=== PATIENT | male | born 1995 | race American Indian/Alaskan Native ===

== ENCOUNTER 2019-02-06 09:30 | Emergency (ER) | payer SELFPAY ==
[2019-02-06 09:39] VITALS: BP 109/63
--- NOTE | 2019-02-06 10:02 | Emergency Department Report ---
HPI - General Chief Complaint: Urogenital-Male Time Seen by Provider: 02/06/19 09:44 - HPI HPI: 23-year-old -[place] male presents to the emergency department with the concern for STDs. Patient has been having some irritation to the tip of his pen is, some occasional mild discharge and has noticed a few bumps on the end of the shaft of his penis. He does admit to some unprotected sexual intercourse last did this about one month ago. He has a previous history of having gonorrhea one time. He says that he was not diagnosed with anything specific when he went to the urgent care 1.5 weeks ago but was treated allegedly for gonorrhea, chlamydia and trichomoniasis. He said he received a shot of something and a few large white pills. However he says that the symptoms have not improved. No past medical history. No recent travel. No fever, nausea, vomiting, testicular pain. ED Past Medical Hx - Past Medical History Previous Medical History?: No - Surgical History Past Surgical History?: No - Social History Smoking Status: Never Smoker Substance Use Type: None ED Review of Systems ROS: Stated complaint: STD CHECK Other details as noted in HPI Comment: All other systems reviewed and negative Constitutional: denies: chills, fever Genitourinary: dysuria, discharge. denies: testicular pain Skin: lesions. denies: pruritus Physical Exam - Physical Exam Vital Signs: Vital Signs 02/06/19 09:37 Temperature 98.5 F Pulse Rate 79 Respiratory 16 Rate Blood Pressure 109/63 O2 Sat by Pulse 98 Oximetry Physical Exam: GENERAL: The patient is well-developed well-nourished. HENT: Normocephalic. Atraumatic. Patient has moist mucous membranes. EYES: Extraocular motions are intact. NECK: Supple. Trachea is midline. ABDOMEN: There is no abdominal distention. SKIN: Skin is warm and dry. NEURO: The patient is awake, alert, and oriented. The patient is cooperative. The patient has no focal neurologic deficits. Normal speech. MUSCULOSKELETAL: There is no tenderness or deformity. There is no evidence of acute injury. : Circumcised male. No tenderness to palpation of the penis or scrotum/testicles. There is a single small papule to the distal penile shaft. ED Course Vital Signs 02/06/19 09:37 Temperature 98.5 F Pulse Rate 79 Respiratory 16 Rate Blood Pressure 109/63 O2 Sat by Pulse 98 Oximetry ED Medical Decision Making - Medical Decision Making Patient presents with the complaint of exposure to STDs and possible failed outpatient treatment. However he does not have any significant symptoms. A single small papules seen to the distal penile shaft. It does not appear consistent with syphilis. He has no penile discharge. Urinalysis was negative and I would expect to see some white blood cells with urethritis. However, given his exposure to the STDs and his complaints of some dysuria, the patient will be empirically treated with Rocephin and azithromycin. Given a referral for the local health department and [facility]. Safe sex talk given. - Differential Diagnosis urethritis, UTI, gonorrhea, chlamydia Critical Care Time: No Critical care attestation.: If time is entered above; I have spent that time in minutes in the direct care of this critically ill patient, excluding procedure time. ED Disposition Clinical Impression: Dysuria, Concern about STD in male without diagnosis Disposition: DC-01 TO HOME OR SELFCARE Is pt being admited?: No Condition: Stable Instructions: Safe Sex (ED) Additional Instructions: I have given a referral for the [facility] to follow-up for primary care needs. I have also given youb a referral for the local [facility]. Please practice safe sex. Especially, do not initiate any type of sexual contact for at least one week after receiving the treatment/medication here today. Return to the emergency Department with any worsening of your symptoms or any acute distress. Referrals: [facility] [Outside] - 3-5 Days [facility] [Outside] - 3-5 Days
[2019-02-06 10:31] LABS: Bilirubin,Urine NEG (Negative); Blood,Urine NEG (Negative); Color,Urine Straw (Yellow); Protein,Urine <15 mg/dL mg/dL (Negative); Urobilinogen,Urine < 2.0 mg/dL (<2.0); WBC,Urine < 1.0 /HPF (0.0-6.0)
[2019-02-06] MEDS ORDERED: ZITHROMAX PO ONE (10:37)
[2019-02-06] MEDS ORDERED: XYLOCAINE 1% MPF 5 mL INFILTRATI ONE (10:37)
[2019-02-06] MEDS ORDERED: ROCEPHIN IM ONE (10:37)
== END 2019-02-06 11:09 | disposition home or self-care (01) ==
LOC: ED 09:30
DX: R30.0 Dysuria (principal); R36.9 Urethral discharge, unspecified; Z71.1 Person with feared health complaint in whom no diagnosis is made
CPT/HCPCS: 81001; 87591; J0696; 96372

== ENCOUNTER 2020-02-02 17:47 | Inpatient (IN) | payer OTHER ==
[2020-02-02 18:39] LABS: Hematocrit 44.2 % (35.5-45.6); Mean Corpuscular HGB Conc 32 % (32-34); Mean Corpuscular Volume 85 fl (84-94); Platelet Count 295 K/mm3 (140-440); Red Blood Count 5.21 M/mm3 (3.65-5.03); Red Cell Distribution Width 16.4 % (13.2-15.2)
[2020-02-02 18:58] LABS: Alanine Aminotransferase 15 units/L (7-56); Albumin 4.2 g/dL (3.9-5); BUN/Creatinine Ratio 8; Blood Urea Nitrogen 7 mg/dL (9-20); Calcium 9.7 mg/dL (8.4-10.2); Hemolysis Index 11
[2020-02-02 21:18] LABS: Anisocytosis 1+; Basophils % (Manual) 0 % (0.0-1.8); Eosinophils % (Manual) 0 % (0.0-4.3); Platelet Estimate Consistent w Auto; Total Cells Counted 100
[2020-02-02] MEDS ORDERED: ONDANSETRON 4 MG ODT TAB PO STA (23:34)
[2020-02-02] MEDS ORDERED: HYOSCYAMINE SUBL 0.125 MG TAB SL ONE (23:34)
[2020-02-02 23:54] LABS: Bilirubin,Urine NEG (Negative); Blood,Urine NEG (Negative); Color,Urine Yellow (Yellow); Mucus,Urine 3+ /HPF; Protein,Urine <15 mg/dL mg/dL (Negative); Urobilinogen,Urine < 2.0 mg/dL (<2.0)
--- NOTE | 2020-02-03 00:33 | Cat Scan Report ---
CT abdomen pelvis w con INDICATION: diffuse abdominal. TECHNIQUE: All CT scans at this location are performed using the following dose modulation technique: Automated exposure control. CONTRAST: Omnipaque 300, 100 cc IV injection. COMPARISON: CT abdomen and pelvis 01/21/2020 CT ABDOMEN: The parenchymal organs are unremarkable in appearance. Negative for new abdominal mass, f luid collection or inflammation. CT PELVIS: Thickening in the region of the terminal ileum/proximal cecum remains with mild worsening. There is developing partial bowel obstruction with dilatation of the distal small bowel. A small jason unt of free fluid is present. No pelvic fluid collection. The appendix is normal. IMPRESSION: Persistent inflammation at the terminal ileum/proximal cecum most likely due to Crohn's d isease. Findings are mildly worsened. New early small bowel obstruction. Signer Name: Jesus Christine MD Signed: 02/03/2020 12:28 AM Workstation Name: [id number]
--- NOTE | 2020-02-03 02:22 | Emergency Department Report ---
ED Abdominal Pain HPI - General Chief Complaint: Abdominal Pain Stated Complaint: ABD PAIN,NAUSEA, TIREDNESS Time Seen by Provider: 02/02/20 23:28 Source: patient Mode of arrival: Ambulatory Limitations: No Limitations - History of Present Illness Initial Comments: 24-year-old -[place] male presents emergency department complaining of reemergence of abdominal pain for which she was admitted earlier this month after being evaluated in the emergency department here at [facility]. He came in on 19 January and was found to have a variation of Crohn's and was discharged home states his symptoms have worsened over the past couple days aft er being resolved and now is beginning to have vomiting and diarrhea coupled with with diffuse abdominal pain. Reports no hemoptysis no hematemesis no hematochezia no hematuria no flank pain. Reports no fever, chills, sweats. MD Complaint: abdominal pain -: Gradual Location: diffuse Radiation: none Migration to: no migration Severity: mild Quality: stabbing, aching Consistency: intermittent Improves With: nothing Worsens With: eating, other (And smoking cannabis) Associated Symptoms: nausea, vomiting, diarrhea - Related Data Previous Rx's Medication Instructions Recorded Last Taken Type Pantoprazole [Protonix TAB] 20 mg PO QDAY #30 tablet. 01/21/20 Unknown Rx levoFLOXacin [Levaquin] 750 mg PO QDAY #10 tablet 01/21/20 Unknown Rx metroNIDAZOLE [Flagyl] 500 mg PO Q8HR #30 tablet 01/21/20 Unknown Rx Allergies Allergy/AdvReac Type Severity Reaction Status Date / Time No Known Allergies Allergy Verified 01/20/20 11:55 ED Review of Systems ROS: Stated complaint: ABD PAIN,NAUSEA, TIREDNESS Other details as noted in HPI Comment: All other systems reviewed and negative ED Past Medical Hx - Past Medical History Hx Asthma: No Hx HIV: No - Social History Smoking Status: Current Every Day Smoker Substance Use Type: Alcohol - Medications Home Medications: Home Medications Medication Instructions Recorded Confirmed Last Taken Type Pantoprazole [Protonix TAB] 20 mg PO QDAY #30 tablet. 01/21/20 Unknown Rx levoFLOXacin [Levaquin] 750 mg PO QDAY #10 tablet 01/21/20 Unknown Rx metroNIDAZOLE [Flagyl] 500 mg PO Q8HR #30 tablet 01/21/20 Unknown Rx ED Physical Exam - General Limitations: No Limitations General appearance: alert, in no apparent distress - Head Head exam: Present: atraumatic, normocephalic - Eye Eye exam: Present: normal appearance, PERRL, EOMI Pupils: Present: normal accommodation - ENT ENT exam: Present: mucous membranes moist - Neck Neck exam: Present: normal inspection, full ROM - Respiratory Respiratory exam: Present: normal lung sounds bilaterally. Absent: respiratory distress, wheezes, rales, accessory muscle use - Cardiovascular Cardiovascular Exam: Present: regular rate, normal rhythm. Absent: systolic murmur, diastolic murmur, rubs, gallop - GI/Abdominal GI/Abdominal exam: Present: soft, tenderness, normal bowel sounds. Absent: distended, hyperactive bowel sounds, hypoactive bowel sounds, organomegaly - Rectal Rectal exam: Present: deferred - Extremities Exam Extremities exam: Present: normal inspection - Back Exam Back exam: Present: normal inspection - Neurological Exam Neurological exam: Present: alert, oriented X3 - Psychiatric Psychiatric exam: Present: normal affect, normal mood - Skin Skin exam: Present: warm, dry, intact, normal color. Absent: rash ED Course Vital Signs 02/02/20 18:08 Temperature 98.0 F Pulse Rate 77 Respiratory 16 Rate Blood Pressure 116/74 O2 Sat by Pulse 96 Oximetry - Consultations Consultation #1: 02/03/20 02:19 Case discussed with general surgery Dr. Vu who is aware of the findings of the CT scan that of partial small bowel obstruction that coupled with the nausea and diarrhea he does recommend an NG tube and gastroenterology evaluation. We will admit to the hospitalist for management. ED Medical Decision Making - Lab Data Result diagrams: 02/02/20 18:18 02/02/20 18:18 Lab Results 02/02/20 02/02/20 02/02/20 Range/Units 18:18 18:18 Unknown WBC 15.7 H (4.5-11.0) K/mm3 RBC 5.21 H (3.65-5.03) M/mm3 Hgb 14.0 (11.8-15.2) gm/dl Hct 44.2 (35.5-45.6) % MCV 85 (84-94) fl MCH 27 L (28-32) pg MCHC 32 (32-34) % RDW 16.4 H (13.2-15.2) % Plt Count 295 (140-440) K/mm3 Add Manual Diff Complete Total Counted 100 Seg Neutrophils % Cotton Classer Aide Seg Neuts % (Manual) 95.0 H (40.0-70.0) % Band Neutrophils % 0 % Lymphocytes % (Manual) 3.0 L (13.4-35.0) % Reactive Lymphs % (Man) 0 % Monocytes % (Manual) 2.0 (0.0-7.3) % Eosinophils % (Manual) 0 (0.0-4.3) % Basophils % (Manual) 0 (0.0-1.8) % Metamyelocytes % 0 % Myelocytes % 0 % Promyelocytes % 0 % Blast Cells % 0 % Nucleated RBC % Not Reportable Seg Neutrophils # Man 14.9 H (1.8-7.7) K/mm3 Band Neutrophils # 0.0 K/mm3 Lymphocytes # (Manual) 0.5 L (1.2-5.4) K/mm3 Abs React Lymphs (Man) 0.0 K/mm3 Monocytes # (Manual) 0.3 (0.0-0.8) K/mm3 Eosinophils # (Manual) 0.0 (0.0-0.4) K/mm3 Basophils # (Manual) 0.0 (0.0-0.1) K/mm3 Metamyelocytes # 0.0 K/mm3 Myelocytes # 0.0 K/mm3 Promyelocytes # 0.0 K/mm3 Blast Cells # 0.0 K/mm3 WBC Morphology Not Reportable Hypersegmented Neuts Not Reportable Hyposegmented Neuts Not Reportable Hypogranular Neuts Not Reportable Smudge Cells Not Reportable Toxic Granulation Not Reportable Toxic Vacuolation Not Reportable Dohle Bodies Not Reportable Pelger-Huet Anomaly Not Reportable Lakshmi Rods Not Reportable Platelet Estimate Consistent w auto Clumped Platelets Not Reportable Plt Clumps, EDTA Not Reportable Large Platelets Not Reportable Giant Platelets Not Reportable Platelet Satelliting Not Reportable Plt Morphology Comment Not Reportable RBC Morphology Not Reportable Dimorphic RBCs Not Reportable Polychromasia Not Reportable Hypochromasia Not Reportable Poikilocytosis Not Reportable Anisocytosis 1+ Microcytosis Not Reportable Macrocytosis Not Reportable Spherocytes Not Reportable Pappenheimer Bodies Not Reportable Sickle Cells Not Reportable Target Cells Not Reportable Tear Drop Cells Not Reportable Ovalocytes Not Reportable Helmet Cells Not Reportable [place] Bodies Not Reportable [place] Rings Not Reportable [place] Cells Not Reportable Bite Cells Not Reportable Crenated Cell Not Reportable Elliptocytes Not Reportable Acanthocytes (Spur) Not Reportable Rouleaux Not Reportable Hemoglobin C Crystals Not Reportable Schistocytes Not Reportable Malaria parasites Not Reportable Endy Bodies Not Reportable Hem Pathologist Commnt No Sodium 138 (137-145) mmol/L Potassium 3.8 (3.6-5.0) mmol/L Chloride 100.6 (98-107) mmol/L Carbon Dioxide 24 (22-30) mmol/L Anion Gap 17 mmol/L BUN 7 L (9-20) mg/dL Creatinine 0.9 (0.8-1.3) mg/dL Estimated GFR > 60 ml/min BUN/Creatinine Ratio 8 % Glucose 114 H (75-100) mg/dL Calcium 9.7 (8.4-10.2) mg/dL Total Bilirubin 0.30 (0.1-1.2) mg/dL AST 19 (5-40) units/L ALT 15 (7-56) units/L Alkaline Phosphatase 78 (35-129) units/L Total Protein 7.6 (6.3-8.2) g/dL Albumin 4.2 (3.9-5) g/dL Albumin/Globulin Ratio 1.2 % Urine Color Yellow (Yellow) Urine Turbidity Clear (Clear) Urine pH 6.0 (5.0-7.0) Ur Specific [place] 1.029 (1.003-1.030) Urine Protein <15 mg/dl (Negative) mg/dL Urine Glucose (UA) Neg (Negative) mg/dL Urine Ketones 20 (Negative) mg/dL Urine Blood Neg (Negative) Urine Nitrite Neg (Negative) Urine Bilirubin Neg (Negative) Urine Urobilinogen < 2.0 (<2.0) mg/dL Ur Leukocyte Esterase Neg (Negative) Urine WBC (Auto) 0.0 (0.0-6.0) /HPF Urine RBC (Auto) 9.0 (0.0-6.0) /HPF Urine Mucus 3+ /HPF - Radiology Data Radiology results: report reviewed [facility] [address] [place] [address] Cat Scan Report Signed Patient: GURVINDER CURTIS MR#: [id number] : 1995 Acct:[id number] Age/Sex: 24 / M ADM Date: 02/02/20 Loc: ED Attending Dr: Ordering Physician: JEFFERY SABILLON Date of Service: 02/02/20 Procedure(s): CT abdomen pelvis w con Accession Number(s): [id number] cc: JEFFERY SABILLON CT abdomen pelvis w con INDICATION: diffuse abdominal. TECHNIQUE: All CT scans at this location are performed using the following dose modulation technique: Automated exposure control. CONTRAST: Omnipaque 300, 100 cc IV injection. COMPARISON: CT abdomen and pelvis 01/21/2020 CT ABDOMEN: The parenchymal organs are unremarkable in appearance. Negative for new abdominal mass, fluid collection or inflammation. CT PELVIS: Thickening in the region of the terminal ileum/proximal cecum remains with mild worsening. There is developing partial bowel obstruction with dilatation of the distal small bowel. A small amount of free fluid is present. No pelvic fluid collection. The appendix is normal. IMPRESSION: Persistent inflammation at the terminal ileum/proximal cecum most likely due to Crohn's disease. Findings are mildly worsened. New early small bowel obstruction. Signer Name: Jesus Christine MD Signed: 02/03/2020 12:28 AM Workstation Name: [id number] Transcribed By: ES Dictated By: Jesus Christine MD Electronically Authenticated By: Jesus Christine MD Signed Date/Time: 02/03/2027 DD/ TD/TT: - Medical Decision Making . 24-year-old male presents emergency department with a suspected history of Crohn's disease the been admitted 2 weeks ago with worsening symptoms. He obtained a CT scan today was taken from what appears to be Crohn's to the cecum however the evolution of a partial small bowel obstruction that coupled with his symptoms diarrhea, nausea, vomiting and pain Case was discussed with a general surgeon home advised admission and nasogastric tube. Talk with hospitalist about admission. He did receive abdominal pain medication in conjunction with IV fluids for comfort. CT scan did not show any evidence of any appendicitis, ischemic bowel, bowel perforation or any other current life-threatening processes. Critical care attestation.: If time is entered above; I have spent that time in minutes in the direct care of this critically ill patient, excluding procedure time. ED Disposition Clinical Impression: Abdominal pain Disposition: OP ADMIT IP TO THIS HOSP Is pt being admited?: Yes Does the pt Need Aspirin: No Condition: Stable Referrals: PRIMARY CARE, [Primary Care Provider] - 3-5 Days
[2020-02-03] MEDS ORDERED: SODIUM CHLORIDE 0.9% 1000 ML 1,000 ML IV ONE (02:24)
[2020-02-03] MEDS ORDERED: MORPHINE 4 MG/1 ML INJ IV STA (03:15)
[2020-02-03] MEDS ORDERED: ONDANSETRON 4 MG/2 ML INJ IV PRN (03:58)
[2020-02-03] MEDS ORDERED: ACETAMINOPHEN 650 MG RECT SUPP PR PRN (04:06)
--- NOTE | 2020-02-03 05:24 | History and Physical Report ---
History of Present Illness Date of examination: 02/03/20 Date of admission: 02/03/20 03:50 Chief complaint: Abdominal pain History of present illness: 24 year old male recently treated for cronh's disease in this hospital presents with generalized abdominal pain associated with diarrhea and denies history of fever, chills, shortness of breath, chest pain, constipation, hematochezia or hematemesis. Past History Past Medical History: other (CROHN'S DISEASE) Past Surgical History: No surgical history Social history: smoking, alcohol abuse Family history: no significant family history Medications and Allergies Allergies Allergy/AdvReac Type Severity Reaction Status Date / Time No Known Allergies Allergy Verified 01/20/20 11:55 Home Medications Medication Instructions Recorded Confirmed Last Taken Type Pantoprazole [Protonix TAB] 20 mg PO QDAY #30 tablet. 01/21/20 Unknown Rx levoFLOXacin [Levaquin] 750 mg PO QDAY #10 tablet 01/21/20 Unknown Rx metroNIDAZOLE [Flagyl] 500 mg PO Q8HR #30 tablet 01/21/20 Unknown Rx Ketorolac [Toradol] 10 mg PO Q6H PRN #15 tablet 02/03/20 Unknown Rx methOCARBAMOL [Robaxin TAB] 750 mg PO Q8H PRN #14 tablet 02/03/20 Unknown Rx Active Meds: Active Medications Acetaminophen (Tylenol) 650 mg [place] Q4H PRN PRN Reason: Fever >101 Levofloxacin/Dextrose (Levaquin 750mg/150ml) 750 mg in 150 mls @ 100 mls/hr IV Q24HR [facility]; Protocol Metronidazole (Flagyl 500 Mg/100 Ml) 500 mg in 100 mls @ 100 mls/hr IV Q8HR [facility]; Protocol Lactated Ringer's (Lactated Ringers) 1,000 mls @ 125 mls/hr IV DIRECT [facility] Methylprednisolone Sodium Succinate (Solu-Medrol) 60 mg IV Q8HR [facility] Morphine Sulfate (Morphine) 2 mg IV Q3H PRN PRN Reason: Pain, Moderate (4-6) Ondansetron HCl (Zofran) 4 mg IV Q6H PRN PRN Reason: Nausea And Vomiting Review of Systems Constitutional: no weight gain, no fever, no chills, no sweats, no weakness, no malaise Eyes: bilateral: other (NO BILATERAL EYE SYMPTOMS) Ears, nose, mouth and throat: no ear pain, no ear discharge, no decreased hearing, no nose pain, no nasal congestion, no nasal discharge, no sinus pressure, no dental pain, no mouth pain, no dysphagia, no hoarseness, no sore throat, no swelling in mouth, no swelling in throat Cardiovascular: no chest pain, no orthopnea, no rapid/irregular heart beat, no edema, no syncope, no lightheadedness, no shortness of breath Respiratory: no cough, no cough with sputum, no excessive sputum, no hemoptysis, no congestion Gastrointestinal: abdominal pain, nausea, diarrhea, no vomiting, no constipation, no change in bowel habits, no hematemesis, no coffee ground emesis, no melena, no hematochezia, no loss of appetite, no early satiety, no he artburn, no indigestion Genitourinary Male: no dysuria, no hematuria Rectal: no pain, no itching Musculoskeletal: no neck stiffness, no neck pain, no shooting arm pain, no arm numbness/tingling, no low back pain, no shooting leg pain, no leg numbness/tingling, no morning stiffness, no muscle weakness Integumentary: no rash, no pruritis, no redness, no wounds, no jaundice, no growths, no lesions, no depigmentation Neurological: no head injury, no weakness, no parathesias, no numbness, no tingling, no seizures, no syncope, no tremors, no ataxia, no vertigo, no headaches, no migraines, no change in speech, no change in mentation Psychiatric: no change in sleep habits, no sleep disturbances, no insomnia, no hypersomnia Endocrine: no cold intolerance, no polydipsia, no polyuria, no nocturia, no excessive sweating, no flushing, no palpatations, no high blood sugars Hematologic/Lymphatic: no easy bruising, no lymphadenopathy Allergic/Immunologic: no urticaria, no allergic rhinitis Exam - Constitutional Vitals: Temp Pulse Resp BP Pulse Ox 98.0 F 77 16 116/74 96 02/02/20 18:08 02/02/20 18:08 02/02/20 18:08 02/02/20 18:08 02/02/20 18:08 General appearance: Present: mild distress - EENT Eyes: Present: PERRL, EOM intact. Absent: scleral icterus ENT: hearing intact, clear oral mucosa - Neck Neck: Present: supple, normal ROM - Respiratory Respiratory effort: normal - Cardiovascular Rhythm: regular Heart Sounds: Present: S1 & S2. Absent: gallop, systolic murmur, diastolic murmur - Extremities Extremities: no ischemia, No edema Peripheral Pulses: within normal limits - Abdominal General gastrointestinal: Present: soft, tender, non-distended. Absent: non- tender, distended, rigid, hepatomegaly, splenomegaly Male genitourinary: Present: deferred - Rectal Rectal Exam: deferred - Integumentary Integumentary: Present: clear, warm, dry - Musculoskeletal Musculoskeletal: strength equal bilaterally - Psychiatric Psychiatric: appropriate mood/affect HEART Score - HEART Score Risk factors: No known risk factors Troponin: < normal limit - Critical Actions Critical Actions: 0-3 pts:0.9-1.7%risk of adverse cardiac event.Candidate for discharge Results - Labs CBC & Chem 7: 02/02/20 18:18 02/02/20 18:18 Labs: Laboratory Last Values WBC 15.7 K/mm3 (4.5-11.0) H 02/02/20 18:18 RBC 5.21 M/mm3 (3.65-5.03) H 02/02/20 18:18 Hgb 14.0 gm/dl (11.8-15.2) 02/02/20 18:18 Hct 44.2 % (35.5-45.6) 02/02/20 18:18 MCV 85 fl (84-94) 02/02/20 18:18 MCH 27 pg (28-32) L 02/02/20 18:18 MCHC 32 % (32-34) 02/02/20 18:18 RDW 16.4 % (13.2-15.2) H 02/02/20 18:18 Plt Count 295 K/mm3 (140-440) 02/02/20 18:18 Add Manual Diff Complete 02/02/20 18:18 Total Counted 100 02/02/20 18:18 Seg Neutrophils % [facility] 02/02/20 18:18 Seg Neuts % (Manual) 95.0 % (40.0-70.0) H 02/02/20 18:18 Band Neutrophils % 0 % 02/02/20 18:18 Lymphocytes % (Manual) 3.0 % (13.4-35.0) L 02/02/20 18:18 Reactive Lymphs % (Man) 0 % 02/02/20 18:18 Monocytes % (Manual) 2.0 % (0.0-7.3) 02/02/20 18:18 Eosinophils % (Manual) 0 % (0.0-4.3) 02/02/20 18:18 Basophils % (Manual) 0 % (0.0-1.8) 02/02/20 18:18 Metamyelocytes % 0 % 02/02/20 18:18 Myelocytes % 0 % 02/02/20 18:18 Promyelocytes % 0 % 02/02/20 18:18 Blast Cells % 0 % 02/02/20 18:18 Nucleated RBC % Not Reportable 02/02/20 18:18 Seg Neutrophils # Man 14.9 K/mm3 (1.8-7.7) H 02/02/20 18:18 Band Neutrophils # 0.0 K/mm3 02/02/20 18:18 Lymphocytes # (Manual) 0.5 K/mm3 (1.2-5.4) L 02/02/20 18:18 Abs React Lymphs (Man) 0.0 K/mm3 02/02/20 18:18 Monocytes # (Manual) 0.3 K/mm3 (0.0-0.8) 02/02/20 18:18 Eosinophils # (Manual) 0.0 K/mm3 (0.0-0.4) 02/02/20 18:18 Basophils # (Manual) 0.0 K/mm3 (0.0-0.1) 02/02/20 18:18 Metamyelocytes # 0.0 K/mm3 02/02/20 18:18 Myelocytes # 0.0 K/mm3 02/02/20 18:18 Promyelocytes # 0.0 K/mm3 02/02/20 18:18 Blast Cells # 0.0 K/mm3 02/02/20 18:18 WBC Morphology Not Reportable 02/02/20 18:18 Hypersegmented Neuts Not Reportable 02/02/20 18:18 Hyposegmented Neuts Not Reportable 02/02/20 18:18 Hypogranular Neuts Not Reportable 02/02/20 18:18 Smudge Cells Not Reportable 02/02/20 18:18 Toxic Granulation Not Reportable 02/02/20 18:18 Toxic Vacuolation Not Reportable 02/02/20 18:18 Dohle Bodies Not Reportable 02/02/20 18:18 Pelger-Huet Anomaly Not Reportable 02/02/20 18:18 Lakshmi Rods Not Reportable 02/02/20 18:18 Platelet Estimate Consistent w auto 02/02/20 18:18 Clumped Platelets Not Reportable 02/02/20 18:18 Plt Clumps, EDTA Not Reportable 02/02/20 18:18 Large Platelets Not Reportable 02/02/20 18:18 Giant Platelets Not Reportable 02/02/20 18:18 Platelet Satelliting Not Reportable 02/02/20 18:18 Plt Morphology Comment Not Reportable 02/02/20 18:18 RBC Morphology Not Reportable 02/02/20 18:18 Dimorphic RBCs Not Reportable 02/02/20 18:18 Polychromasia Not Reportable 02/02/20 18:18 Hypochromasia Not Reportable 02/02/20 18:18 Poikilocytosis Not Reportable 02/02/20 18:18 Anisocytosis 1+ 02/02/20 18:18 Microcytosis Not Reportable 02/02/20 18:18 Macrocytosis Not Reportable 02/02/20 18:18 Spherocytes Not Reportable 02/02/20 18:18 Pappenheimer Bodies Not Reportable 02/02/20 18:18 Sickle Cells Not Reportable 02/02/20 18:18 Target Cells Not Reportable 02/02/20 18:18 Tear Drop Cells Not Reportable 02/02/20 18:18 Ovalocytes Not Reportable 02/02/20 18:18 Helmet Cells Not Reportable 02/02/20 18:18 [place] Bodies Not Reportable 02/02/20 18:18 [place] Rings Not Reportable 02/02/20 18:18 Matthew Cells Not Reportable 02/02/20 18:18 Bite Cells Not Reportable 02/02/20 18:18 Crenated Cell Not Reportable 02/02/20 18:18 Elliptocytes Not Reportable 02/02/20 18:18 Acanthocytes (Spur) Not Reportable 02/02/20 18:18 Rouleaux Not Reportable 02/02/20 18:18 Hemoglobin C Crystals Not Reportable 02/02/20 18:18 Schistocytes Not Reportable 02/02/20 18:18 Malaria parasites Not Reportable 02/02/20 18:18 Endy Bodies Not Reportable 02/02/20 18:18 Hem Pathologist Commnt No 02/02/20 18:18 Sodium 138 mmol/L (137-145) 02/02/20 18:18 Potassium 3.8 mmol/L (3.6-5.0) 02/02/20 18:18 Chloride 100.6 mmol/L (98-107) 02/02/20 18:18 Carbon Dioxide 24 mmol/L (22-30) 02/02/20 18:18 Anion Gap 17 mmol/L 02/02/20 18:18 BUN 7 mg/dL (9-20) L 02/02/20 18:18 Creatinine 0.9 mg/dL (0.8-1.3) 02/02/20 18:18 Estimated GFR > 60 ml/min 02/02/20 18:18 BUN/Creatinine Ratio 8 % 02/02/20 18:18 Glucose 114 mg/dL (75-100) H 02/02/20 18:18 Calcium 9.7 mg/dL (8.4-10.2) 02/02/20 18:18 Total Bilirubin 0.30 mg/dL (0.1-1.2) 02/02/20 18:18 AST 19 units/L (5-40) 02/02/20 18:18 ALT 15 units/L (7-56) 02/02/20 18:18 Alkaline Phosphatase 78 units/L (35-129) 02/02/20 18:18 Total Protein 7.6 g/dL (6.3-8.2) 02/02/20 18:18 Albumin 4.2 g/dL (3.9-5) 02/02/20 18:18 Albumin/Globulin Ratio 1.2 % 02/02/20 18:18 Urine Color Yellow (Yellow) 02/02/20 Unknown Urine Turbidity Clear (Clear) 02/02/20 Unknown Urine pH 6.0 (5.0-7.0) 02/02/20 Unknown Ur Specific [place] 1.029 (1.003-1.030) 02/02/20 Unknown Urine Protein <15 mg/dl mg/dL (Negative) 02/02/20 Unknown Urine Glucose (UA) Neg mg/dL (Negative) 02/02/20 Unknown Urine Ketones 20 mg/dL (Negative) 02/02/20 Unknown Urine Blood Neg (Negative) 02/02/20 Unknown Urine Nitrite Neg (Negative) 02/02/20 Unknown Urine Bilirubin Neg (Negative) 02/02/20 Unknown Urine Urobilinogen < 2.0 mg/dL (<2.0) 02/02/20 Unknown Ur Leukocyte Esterase Neg (Negative) 02/02/20 Unknown Urine WBC (Auto) 0.0 /HPF (0.0-6.0) 02/02/20 Unknown Urine RBC (Auto) 9.0 /HPF (0.0-6.0) 02/02/20 Unknown Urine Mucus 3+ /HPF 02/02/20 Unknown Calderon/IV: IV Catheter Type [Right Distal INT / Saline Lock Port Upper arm] Assessment and Plan - Patient Problems (1) Small bowel obstruction Current Visit: Yes Status: Acute Plan to address problem: 1. SURGICAL CONSULT 2. INTERMITTENT LOW WALL SUCTIONING WITH N/G TUBE 3. NPO 4. I.V LEVAQUIN ANTIBIOTIC 5. I.V METRONIDAZOLE ANTIBIOTIC 6. I.V LACTATE RINGER'S SOLUTION (2) Exacerbation of Crohn's disease Current Visit: Yes Status: Acute Plan to address problem: 1. I.V SOLUMEDROL 2. I.V MORPHINE FOR PAIN 3. I.V ZOFRAN 4. G.I CONSULT 5. I.V NORMAL SALINE
[2020-02-03] MEDS: metroNIDAZOLE/NS 500 MG/100 ML 500 MG/100 ML BAG IV SCH ×3 (06:10→22:09)
[2020-02-03] MEDS: LACTATED RINGERS 1,000 ML IV SCH ×2 (06:10→19:33)
[2020-02-03] MEDS: methylPREDNISolone Sod Succinate 125 MG/2 ML INJ IV SCH ×3 (06:11→22:11)
--- NOTE | 2020-02-03 13:11 | Consultation ---
History of Present Illness Consult date: 02/03/20 Reason for consult: abdominal pain Requesting physician: GLENIS HANSON Chief complaint: lower abdominal pain - History of present illness History of present illness: 24yo M with possible Crohn's disease presents to the ED with recurrence of lower abdominal pain. CT scan suggested ileocolic inflammation with possible early small bowel obstruction. General surgery was consulted. Patient reports that he has had problems with lower abdominal pain since March 2019. This is been recurrent issue for him. Due to his recent incarceration, he has been unable to get full evaluation and official diagnosis of the problem. He was recently seen in the emergency department about 1-1/2 weeks ago. He was unable to follow-up with a inspector shells since that time to further evaluate this possible Crohn's disease. He reports that he is feeling a little bit better now. He is no longer nauseated. He had passed flatus last night. He removed his NG tube due to discomfort and difficulty with breathing. Past History Past Medical History: other (possible CROHN'S DISEASE) Past Surgical History: No surgical history Social history: smoking, alcohol abuse Family history: no significant family history Medications and Allergies Allergies Allergy/AdvReac Type Severity Reaction Status Date / Time No Known Allergies Allergy Verified 01/20/20 11:55 Home Medications Medication Instructions Recorded Confirmed Last Taken Type Pantoprazole [Protonix TAB] 20 mg PO QDAY #30 tablet. 01/21/20 Unknown Rx levoFLOXacin [Levaquin] 750 mg PO QDAY #10 tablet 01/21/20 Unknown Rx metroNIDAZOLE [Flagyl] 500 mg PO Q8HR #30 tablet 01/21/20 Unknown Rx Ketorolac [Toradol] 10 mg PO Q6H PRN #15 tablet 02/03/20 Unknown Rx methOCARBAMOL [Robaxin TAB] 750 mg PO Q8H PRN #14 tablet 02/03/20 Unknown Rx Active Meds: Active Medications Acetaminophen (Tylenol) 650 mg [place] Q4H PRN PRN Reason: Fever >101 Levofloxacin/Dextrose (Levaquin 750mg/150ml) 750 mg in 150 mls @ 100 mls/hr IV Q24HR [facility]; Protocol Last Admin: 02/03/20 09:15 Dose: 100 mls/hr Documented by: Metronidazole (Flagyl 500 Mg/100 Ml) 500 mg in 100 mls @ 100 mls/hr IV Q8HR [facility]; Protocol Last Admin: 02/03/20 06:10 Dose: 100 mls/hr Documented by: Lactated Ringer's (Lactated Ringers) 1,000 mls @ 125 mls/hr IV DIRECT [facility] Last Admin: 02/03/20 06:10 Dose: 125 mls/hr Documented by: Methylprednisolone Sodium Succinate (Solu-Medrol) 60 mg IV Q8HR [facility] Last Admin: 02/03/20 06:11 Dose: 60 mg Documented by: Morphine Sulfate (Morphine) 2 mg IV Q3H PRN PRN Reason: Pain, Moderate (4-6) Ondansetron HCl (Zofran) 4 mg IV Q6H PRN PRN Reason: Nausea And Vomiting Review of Systems - Constitutional chronic pain, no fever, no chills - Cardiovascular no chest pain, no shortness of breath - Respiratory no cough - Gastrointestinal abdominal pain, nausea, vomiting, diarrhea, no coffee ground emesis, no BRBPR, no melena, no hematochezia - Integumentary no rash, no sores Exam Vital Signs Temp Pulse Resp BP Pulse Ox 98.0 F 77 16 116/74 96 02/02/20 18:08 02/02/20 18:08 02/02/20 18:08 02/02/20 18:08 02/02/20 18:08 - General physical appearance Positive: well developed, well nourished, no distress, no pain, other (Healthy- appearing young man. Very polite and pleasant.) - Eyes Positive: normal occular movement. Negative: icteric - Respiratory Positive: normal expansion, normal respiratory effort, clear to auscultation - Cardiovascular Rhythm: regular - Abdomen Abdomen: Present: soft, bowel sounds normal, other (Sits up in bed very easily.). Absent: tender, distended, masses, guarding, rigid, surgical scars - Integumentary no rash, no growths, no abnormal pigmentation - Neurologic Neurologic: alert and oriented to time, place and person, motor strength and sensation are grossly intact - Psychiatric Psychiatric: appropriate mood/affect, intact judgment & insight, cooperative Results - Labs 02/02/20 18:18 02/02/20 18:18 Abnormal lab results 02/02/20 02/02/20 Range/Units 18:18 18:18 WBC 15.7 H (4.5-11.0) K/mm3 RBC 5.21 H (3.65-5.03) M/mm3 MCH 27 L (28-32) pg RDW 16.4 H (13.2-15.2) % Seg Neuts % (Manual) 95.0 H (40.0-70.0) % Lymphocytes % (Manual) 3.0 L (13.4-35.0) % Seg Neutrophils # Man 14.9 H (1.8-7.7) K/mm3 Lymphocytes # (Manual) 0.5 L (1.2-5.4) K/mm3 BUN 7 L (9-20) mg/dL Glucose 114 H (75-100) mg/dL Diabetes panel 02/02/20 Range/Units 18:18 Sodium 138 (137-145) mmol/L Potassium 3.8 (3.6-5.0) mmol/L Chloride 100.6 (98-107) mmol/L Carbon Dioxide 24 (22-30) mmol/L BUN 7 L (9-20) mg/dL Creatinine 0.9 (0.8-1.3) mg/dL Glucose 114 H (75-100) mg/dL Calcium 9.7 (8.4-10.2) mg/dL AST 19 (5-40) units/L ALT 15 (7-56) units/L Alkaline Phosphatase 78 (35-129) units/L Total Protein 7.6 (6.3-8.2) g/dL Albumin 4.2 (3.9-5) g/dL Calcium panel 02/02/20 Range/Units 18:18 Calcium 9.7 (8.4-10.2) mg/dL Albumin 4.2 (3.9-5) g/dL Pituitary panel 02/02/20 Range/Units 18:18 Sodium 138 (137-145) mmol/L Potassium 3.8 (3.6-5.0) mmol/L Chloride 100.6 (98-107) mmol/L Carbon Dioxide 24 (22-30) mmol/L BUN 7 L (9-20) mg/dL Creatinine 0.9 (0.8-1.3) mg/dL Glucose 114 H (75-100) mg/dL Calcium 9.7 (8.4-10.2) mg/dL Adrenal panel 08/29/20 Range/Units 18:18 Sodium 138 (137-145) mmol/L Potassium 3.8 (3.6-5.0) mmol/L Chloride 100.6 (98-107) mmol/L Carbon Dioxide 24 (22-30) mmol/L BUN 7 L (9-20) mg/dL Creatinine 0.9 (0.8-1.3) mg/dL Glucose 114 H (75-100) mg/dL Calcium 9.7 (8.4-10.2) mg/dL Total Bilirubin 0.30 (0.1-1.2) mg/dL AST 19 (5-40) units/L ALT 15 (7-56) units/L Alkaline Phosphatase 78 (35-129) units/L Total Protein 7.6 (6.3-8.2) g/dL Albumin 4.2 (3.9-5) g/dL - Imaging CT scan - abdomen: report reviewed, image reviewed CT scan - pelvis: report reviewed, image reviewed Assessment and Plan - Patient Problems (1) Small bowel obstruction Current Visit: Yes Status: Acute Plan to address problem: Pt. stable. He may already be in the process of resolving the situation. I recommend that he stay n.p.o. for now until GI has a chance to evaluate him. No surgical intervention is required at this time. We will follow along. Please call with any questions. Time=30min
--- NOTE | 2020-02-03 13:30 | Event Note ---
Date: 02/03/20 Patient seen and examined reports clinical improvement. We will continue current medication nursing staff informs me that he pulled out his NG tube. Will avoid replacing at this time as he is clinically improving await GI surgical evaluation.
--- NOTE | 2020-02-03 16:11 | Gastroenterology Consultation ---
History of Present Illness - Reason for Consult Consult date: 02/03/[address] scan, possible crohn's Requesting physician: KURT LOPEZ - History of Present Illness The patient is a 24 yo aam who presents with recurrent abd pain with n/v. pt has had "episodes" of abd pain since March of 2019 (while incarcerated). he has had recurrent episodes of self-limiting lower abd pain with associated n/v for the past few months. He was in the hospital a couple weeks ago for similar sx's and presents again with recurrent abd pain and n/v. ct scan shows signs of ileo-colonic inflammation with possible early sbo with findings suggestive of crohn's disease. abd pain is improved today, + flatus, no further n/v today. he has occasional loose bm's at home, denies gi bleeding. no nsaid's or tobacco use (smokes marijuana). Past History Past Medical History: other (possible CROHN'S DISEASE) Past Surgical History: No surgical history Social history: smoking, alcohol abuse Family history: no significant family history Medications and Allergies Allergies Allergy/AdvReac Type Severity Reaction Status Date / Time No Known Allergies Allergy Verified 01/20/20 11:55 Home Medications Medication Instructions Recorded Confirmed Last Taken Type Pantoprazole [Protonix TAB] 20 mg PO QDAY #30 tablet. 01/21/20 Unknown Rx levoFLOXacin [Levaquin] 750 mg PO QDAY #10 tablet 01/21/20 Unknown Rx metroNIDAZOLE [Flagyl] 500 mg PO Q8HR #30 tablet 01/21/20 Unknown Rx Ketorolac [Toradol] 10 mg PO Q6H PRN #15 tablet 02/03/20 Unknown Rx methOCARBAMOL [Robaxin TAB] 750 mg PO Q8H PRN #14 tablet 02/03/20 Unknown Rx Active Meds: Active Medications Acetaminophen (Tylenol) 650 mg [place] Q4H PRN PRN Reason: Fever >101 Levofloxacin/Dextrose (Levaquin 750mg/150ml) 750 mg in 150 mls @ 100 mls/hr IV Q24HR [facility]; Protocol Last Admin: 02/03/20 09:15 Dose: 100 mls/hr Documented by: Metronidazole (Flagyl 500 Mg/100 Ml) 500 mg in 100 mls @ 100 mls/hr IV Q8HR [facility]; Protocol Last Admin: 02/03/20 14:09 Dose: 100 mls/hr Documented by: Lactated Ringer's (Lactated Ringers) 1,000 mls @ 125 mls/hr IV DIRECT [facility] Last Admin: 02/03/20 06:10 Dose: 125 mls/hr Documented by: Methylprednisolone Sodium Succinate (Solu-Medrol) 60 mg IV Q8HR [facility] Last Admin: 02/03/20 14:09 Dose: 60 mg Documented by: Morphine Sulfate (Morphine) 2 mg IV Q3H PRN PRN Reason: Pain, Moderate (4-6) Ondansetron HCl (Zofran) 4 mg IV Q6H PRN PRN Reason: Nausea And Vomiting reviewed/udpated patient's home and current medications Review of Systems - Review of Systems All systems: negative (per HPI) Exam - Constitutional Vital Signs: Temp Pulse Resp BP Pulse Ox 98.4 F 85 18 125/61 97 02/03/20 11:12 02/03/20 11:12 02/03/20 11:12 02/03/20 11:12 02/03/20 11:12 General appearance: no acute distress - Neck Neck: supple - Respiratory Respiratory effort: normal Respiratory: bilateral: CTA - Cardiovascular Rhythm: regular Heart Sounds: Present: S1 & S2 - Gastrointestinal General gastrointestinal: Present: soft, tender (mild rlq ttp), non-distended - Neurologic Neurological: alert and oriented x3 - Psychiatric Psychiatric: appropriate mood/affect - Labs CBC & Chem 7: 02/02/20 18:18 02/02/20 18:18 Lab Results: Laboratory Results - last 24 hr 02/02/20 02/02/20 02/02/20 18:18 18:18 Unknown WBC 15.7 H RBC 5.21 H Hgb 14.0 Hct 44.2 MCV 85 MCH 27 L MCHC 32 RDW 16.4 H Plt Count 295 Add Manual Diff Complete Total Counted 100 Seg Neutrophils % [employer] Seg Neuts % (Manual) 95.0 H Band Neutrophils % 0 Lymphocytes % (Manual) 3.0 L Reactive Lymphs % (Man) 0 Monocytes % (Manual) 2.0 Eosinophils % (Manual) 0 Basophils % (Manual) 0 Metamyelocytes % 0 Myelocytes % 0 Promyelocytes % 0 Blast Cells % 0 Nucleated RBC % Not Reportable Seg Neutrophils # Man 14.9 H Band Neutrophils # 0.0 Lymphocytes # (Manual) 0.5 L Abs React Lymphs (Man) 0.0 Monocytes # (Manual) 0.3 Eosinophils # (Manual) 0.0 Basophils # (Manual) 0.0 Metamyelocytes # 0.0 Myelocytes # 0.0 Promyelocytes # 0.0 Blast Cells # 0.0 WBC Morphology Not Reportable Hypersegmented Neuts Not Reportable Hyposegmented Neuts Not Reportable Hypogranular Neuts Not Reportable Smudge Cells Not Reportable Toxic Granulation Not Reportable Toxic Vacuolation Not Reportable Dohle Bodies Not Reportable Pelger-Huet Anomaly Not Reportable Lakshmi Rods Not Reportable Platelet Estimate Consistent w auto Clumped Platelets Not Reportable Plt Clumps, EDTA Not Reportable Large Platelets Not Reportable Giant Platelets Not Reportable Platelet Satelliting Not Reportable Plt Morphology Comment Not Reportable RBC Morphology Not Reportable Dimorphic RBCs Not Reportable Polychromasia Not Reportable Hypochromasia Not Reportable Poikilocytosis Not Reportable Anisocytosis 1+ Microcytosis Not Reportable Macrocytosis Not Reportable Spherocytes Not Reportable Pappenheimer Bodies Not Reportable Sickle Cells Not Reportable Target Cells Not Reportable Tear Drop Cells Not Reportable Ovalocytes Not Reportable Helmet Cells Not Reportable [place] Bodies Not Reportable [place] Rings Not Reportable Matthew Cells Not Reportable Bite Cells Not Reportable Crenated Cell Not Reportable Elliptocytes Not Reportable Acanthocytes (Spur) Not Reportable Rouleaux Not Reportable Hemoglobin C Crystals Not Reportable Schistocytes Not Reportable Malaria parasites Not Reportable Endy Bodies Not Reportable Hem Pathologist Commnt No Sodium 138 Potassium 3.8 Chloride 100.6 Carbon Dioxide 24 Anion Gap 17 BUN 7 L Creatinine 0.9 Estimated GFR > 60 BUN/Creatinine Ratio 8 Glucose 114 H Calcium 9.7 Total Bilirubin 0.30 AST 19 ALT 15 Alkaline Phosphatase 78 Total Protein 7.6 Albumin 4.2 Albumin/Globulin Ratio 1.2 Urine Color Yellow Urine Turbidity Clear Urine pH 6.0 Ur Specific [place] 1.029 Urine Protein <15 mg/dl Urine Glucose (UA) Neg Urine Ketones 20 Urine Blood Neg Urine Nitrite Neg Urine Bilirubin Neg Urine Urobilinogen < 2.0 Ur Leukocyte Esterase Neg Urine WBC (Auto) 0.0 Urine RBC (Auto) 9.0 Urine Mucus 3+ - Imaging CT Scan: report reviewed Assessment and Plan 1. Abd pain with n/v and ct findings of ileo-colonic inflammation/sbo - findings/presentation suggest crohn's disease. mild abd tenderness but otherwise benign exam at the time of visit. cont abx, IV steroids (switch to oral prednisone tomorrow) and will start trial of clears. obtain CT enterography in 1-2 days. will need outpatient work-up/colonoscopy once acute sx's subside. will follow
[2020-02-03] MEDS: MORPHINE 2 MG/1 ML INJ IV PRN (19:42)
[2020-02-04] MEDS: LACTATED RINGERS 1,000 ML IV SCH (05:04)
[2020-02-04] MEDS: methylPREDNISolone Sod Succinate 125 MG/2 ML INJ IV SCH (05:05)
[2020-02-04] MEDS: metroNIDAZOLE/NS 500 MG/100 ML 500 MG/100 ML BAG IV SCH ×3 (05:06→23:03)
[2020-02-04] MEDS: MORPHINE 2 MG/1 ML INJ IV PRN (05:13)
--- NOTE | 2020-02-04 10:18 | Gastroenterology Progress Note ---
Assessment and Plan 1. abd pain with n/v - ct with ileocolonic inflammation with signs of sbo; findings suggestive of crohn's disease. he has clinically improved with abx, IV steroids and supportive care. okay to advance to soft diet today if okay with surgery. transition to oral meds (prednisone [address] enterography tomorrow and then likely can be discharged if no worsening/new changes on imaging. will need close outpt follow-up in gi clinic Subjective Date of service: 02/04/20 Principal diagnosis: abd pain, n/v Interval history: pt seen and examined; feeling better, tolerating clears. no n/v, denies abd pain, + bm this morning Objective - Constitutional Vitals: Temp Pulse Resp BP Pulse Ox 97.9 F 85 18 120/80 100 02/04/20 05:11 02/04/20 05:11 02/04/20 05:11 02/04/20 05:11 02/04/20 05:11 General appearance: no acute distress - Respiratory Respiratory effort: normal Respiratory: bilateral: CTA - Cardiovascular Rhythm: regular Heart Sounds: Present: S1 & S2 - Gastrointestinal General gastrointestinal: Present: soft, non-tender, non-distended - Labs CBC & Chem 7: 02/02/20 18:18 02/02/20 18:18
--- NOTE | 2020-02-04 13:10 | Progress Note ---
Assessment and Plan Assessment and plan: 24 year old male recently treated for cronh's disease in this hospital presents with generalized abdominal pain associated with diarrhea and denies history of fever, chills, shortness of breath, chest pain, constipation, hematochezia or hematemesis. Surgery also evaluated the patient and per their documentation Patient reports that he has had problems with lower abdominal pain since March 2019. This is been recurrent issue for him. Due to his recent incarceration, he has been unable to get full evaluation and official diagnosis of the problem. He was recently seen in the emergency department about 1-1/2 weeks ago. He was unable to follow-up with a bobbin fixer since that time to further evaluate this possible Crohn's disease. He reports that he is feeling a little bit better now. He is no longer nauseated. He had passed flatus last night. He removed his NG tube due to discomfort and difficulty with breathing. CT abdomen and pelvis: IMPRESSION: Persistent inflammation at the terminal ileum/proximal cecum most likely due to Crohn's disease. Findings are mildly worsened. New early small bowel obstruction. On reevaluation by GI: ct with ileocolonic inflammation with signs of sbo; findings suggestive of crohn's disease. he has clinically improved with abx, IV steroids and supportive care. okay to advance to soft diet today if okay with surgery. transition to oral meds (prednisone 40 [address] taper). CT enterography tomorrow and then likely can be discharged if no worsening/new changes on imaging. will need close outpt follow-up in gi clinic This has been discussed with the patient CT enterography has been ordered for a.m. Assessment Small bowel obstruction now resolved Crohn's disease with acute exacerbation none appeared to resolve Persistent nausea with vomiting secondary to above Abdominal pain secondary to above Leukocytosis secondary to above Plan Continue supportive care Advance as tolerated with soft diet today per GI Transition to prednisone 40 mg with plan to taper starting today. CT enterography in a.m. Pain control Anticipate discharge in a.m. have discussed with the patient importance of following with GI clinic closely. DVT and GI prophylaxis Plan of care detail with the patient. History Interval history: Patient seen and examined clinically improving now tolerating some clear liquid diet. Hospitalist Physical - Physical exam Narrative exam: VITAL SIGNS: Reviewed. GENERAL: The patient appears normally developed, Vital signs as documented. HEAD: No signs of head trauma. EYES: Pupils are equal. Extraocular motions intact. EARS: Hearing grossly intact. MOUTH: Oropharynx is normal. NECK: No adenopathy, no JVD. CHEST: Chest with clear breath sounds bilaterally. No wheezes, rales, or rhonchi. CARDIAC: Regular rate and rhythm. S1 and S2, without murmurs, gallops, or rubs. VASCULAR: No Edema. Peripheral pulses normal and equal in all extremities. ABDOMEN: Soft, mildly tender but improved and non distended. No rebound or guarding, and no masses palpated. Bowel Sounds normal. MUSCULOSKELETAL: Good range of motion of all major joints. Extremities without clubbing, cyanosis or edema. NEUROLOGIC EXAM: Alert and oriented x 3 No focal sensory or strength deficits. Speech normal. Follows commands. PSYCHIATRIC: Mood normal. SKIN: Multiple tattoos detail exam as documented in skin assessment - Constitutional Vitals: Temp Pulse Resp BP Pulse Ox 97.9 F 85 18 120/80 100 02/04/20 05:11 02/04/20 05:11 02/04/20 05:11 02/04/20 05:11 02/04/20 05:11 General appearance: Present: mild distress HEART Score - HEART Score Risk factors: No known risk factors Troponin: < normal limit - Critical Actions Critical Actions: 0-3 pts:0.9-1.7%risk of adverse cardiac event.Candidate for discharge Results - Labs CBC & Chem 7: 02/02/20 18:18 02/02/20 18:18 Labs: Laboratory Last Values WBC 15.7 K/mm3 (4.5-11.0) H 02/02/20 18:18 RBC 5.21 M/mm3 (3.65-5.03) H 02/02/20 18:18 Hgb 14.0 gm/dl (11.8-15.2) 02/02/20 18:18 Hct 44.2 % (35.5-45.6) 02/02/20 18:18 MCV 85 fl (84-94) 02/02/20 18:18 MCH 27 pg (28-32) L 02/02/20 18:18 MCHC 32 % (32-34) 02/02/20 18:18 RDW 16.4 % (13.2-15.2) H 02/02/20 18:18 Plt Count 295 K/mm3 (140-440) 02/02/20 18:18 Add Manual Diff Complete 02/02/20 18:18 Total Counted 100 02/02/20 18:18 Seg Neutrophils % Writing Center Director 02/02/20 18:18 Seg Neuts % (Manual) 95.0 % (40.0-70.0) H 02/02/20 18:18 Band Neutrophils % 0 % 02/02/20 18:18 Lymphocytes % (Manual) 3.0 % (13.4-35.0) L 02/02/20 18:18 Reactive Lymphs % (Man) 0 % 02/02/20 18:18 Monocytes % (Manual) 2.0 % (0.0-7.3) 02/02/20 18:18 Eosinophils % (Manual) 0 % (0.0-4.3) 02/02/20 18:18 Basophils % (Manual) 0 % (0.0-1.8) 02/02/20 18:18 Metamyelocytes % 0 % 02/02/20 18:18 Myelocytes % 0 % 02/02/20 18:18 Promyelocytes % 0 % 02/02/20 18:18 Blast Cells % 0 % 02/02/20 18:18 Nucleated RBC % Not Reportable 02/02/20 18:18 Seg Neutrophils # Man 14.9 K/mm3 (1.8-7.7) H 02/02/20 18:18 Band Neutrophils # 0.0 K/mm3 02/02/20 18:18 Lymphocytes # (Manual) 0.5 K/mm3 (1.2-5.4) L 02/02/20 18:18 Abs React Lymphs (Man) 0.0 K/mm3 02/02/20 18:18 Monocytes # (Manual) 0.3 K/mm3 (0.0-0.8) 02/02/20 18:18 Eosinophils # (Manual) 0.0 K/mm3 (0.0-0.4) 02/02/20 18:18 Basophils # (Manual) 0.0 K/mm3 (0.0-0.1) 02/02/20 18:18 Metamyelocytes # 0.0 K/mm3 02/02/20 18:18 Myelocytes # 0.0 K/mm3 02/02/20 18:18 Promyelocytes # 0.0 K/mm3 02/02/20 18:18 Blast Cells # 0.0 K/mm3 02/02/20 18:18 WBC Morphology Not Reportable 02/02/20 18:18 Hypersegmented Neuts Not Reportable 02/02/20 18:18 Hyposegmented Neuts Not Reportable 02/02/20 18:18 Hypogranular Neuts Not Reportable 02/02/20 18:18 Smudge Cells Not Reportable 02/02/20 18:18 Toxic Granulation Not Reportable 02/02/20 18:18 Toxic Vacuolation Not Reportable 02/02/20 18:18 Dohle Bodies Not Reportable 02/02/20 18:18 Pelger-Huet Anomaly Not Reportable 02/02/20 18:18 Lakshmi Rods Not Reportable 02/02/20 18:18 Platelet Estimate Consistent w auto 02/02/20 18:18 Clumped Platelets Not Reportable 02/02/20 18:18 Plt Clumps, EDTA Not Reportable 02/02/20 18:18 Large Platelets Not Reportable 02/02/20 18:18 Giant Platelets Not Reportable 02/02/20 18:18 Platelet Satelliting Not Reportable 02/02/20 18:18 Plt Morphology Comment Not Reportable 02/02/20 18:18 RBC Morphology Not Reportable 02/02/20 18:18 Dimorphic RBCs Not Reportable 02/02/20 18:18 Polychromasia Not Reportable 02/02/20 18:18 Hypochromasia Not Reportable 02/02/20 18:18 Poikilocytosis Not Reportable 02/02/20 18:18 Anisocytosis 1+ 02/02/20 18:18 Microcytosis Not Reportable 02/02/20 18:18 Macrocytosis Not Reportable 02/02/20 18:18 Spherocytes Not Reportable 02/02/20 18:18 Pappenheimer Bodies Not Reportable 02/02/20 18:18 Sickle Cells Not Reportable 02/02/20 18:18 Target Cells Not Reportable 02/02/20 18:18 Tear Drop Cells Not Reportable 02/02/20 18:18 Ovalocytes Not Reportable 02/02/20 18:18 Helmet Cells Not Reportable 02/02/20 18:18 [place] Bodies Not Reportable 02/02/20 18:18 Onia Rings Not Reportable 02/02/20 18:18 [place] Cells Not Reportable 02/02/20 18:18 Bite Cells Not Reportable 02/02/20 18:18 Crenated Cell Not Reportable 02/02/20 18:18 Elliptocytes Not Reportable 02/02/20 18:18 Acanthocytes (Spur) Not Reportable 02/02/20 18:18 Rouleaux Not Reportable 02/02/20 18:18 Hemoglobin C Crystals Not Reportable 02/02/20 18:18 Schistocytes Not Reportable 02/02/20 18:18 Malaria parasites Not Reportable 02/02/20 18:18 Endy Bodies Not Reportable 02/02/20 18:18 Hem Pathologist Commnt No 02/02/20 18:18 Sodium 138 mmol/L (137-145) 02/02/20 18:18 Potassium 3.8 mmol/L (3.6-5.0) 02/02/20 18:18 Chloride 100.6 mmol/L (98-107) 02/02/20 18:18 Carbon Dioxide 24 mmol/L (22-30) 02/02/20 18:18 Anion Gap 17 mmol/L 02/02/20 18:18 BUN 7 mg/dL (9-20) L 02/02/20 18:18 Creatinine 0.9 mg/dL (0.8-1.3) 02/02/20 18:18 Estimated GFR > 60 ml/min 02/02/20 18:18 BUN/Creatinine Ratio 8 % 02/02/20 18:18 Glucose 114 mg/dL (75-100) H 02/02/20 18:18 Calcium 9.7 mg/dL (8.4-10.2) 02/02/20 18:18 Total Bilirubin 0.30 mg/dL (0.1-1.2) 02/02/20 18:18 AST 19 units/L (5-40) 02/02/20 18:18 ALT 15 units/L (7-56) 02/02/20 18:18 Alkaline Phosphatase 78 units/L (35-129) 02/02/20 18:18 Total Protein 7.6 g/dL (6.3-8.2) 02/02/20 18:18 Albumin 4.2 g/dL (3.9-5) 02/02/20 18:18 Albumin/Globulin Ratio 1.2 % 02/02/20 18:18 Urine Color Yellow (Yellow) 02/02/20 Unknown Urine Turbidity Clear (Clear) 02/02/20 Unknown Urine pH 6.0 (5.0-7.0) 02/02/20 Unknown Ur Specific [place] 1.029 (1.003-1.030) 02/02/20 Unknown Urine Protein <15 mg/dl mg/dL (Negative) 02/02/20 Unknown Urine Glucose (UA) Neg mg/dL (Negative) 02/02/20 Unknown Urine Ketones 20 mg/dL (Negative) 02/02/20 Unknown Urine Blood Neg (Negative) 02/02/20 Unknown Urine Nitrite Neg (Negative) 02/02/20 Unknown Urine Bilirubin Neg (Negative) 02/02/20 Unknown Urine Urobilinogen < 2.0 mg/dL (<2.0) 02/02/20 Unknown Ur Leukocyte Esterase Neg (Negative) 02/02/20 Unknown Urine WBC (Auto) 0.0 /HPF (0.0-6.0) 02/02/20 Unknown Urine RBC (Auto) 9.0 /HPF (0.0-6.0) 02/02/20 Unknown Urine Mucus 3+ /HPF 02/02/20 Unknown Calderon/IV: IV Catheter Type [Right Distal INT / Saline Lock Port Upper arm] Active Medications - Current Medications Current Medications: Generic Name Dose Route Start Last Admin Trade Name Freq PRN Reason Stop Dose Admin Acetaminophen 650 mg 02/03/20 04:06 Tylenol [place] Q4H PRN Fever >101 Levofloxacin/Dextrose 750 mg in 150 mls @ 100 mls/hr 02/03/20 10:00 02/03/20 09:15 Levaquin 750mg/150ml IV 100 mls/hr Q24HR CONCHITA Administration Protocol Metronidazole 500 mg in 100 mls @ 100 mls/hr 02/03/20 06:00 02/04/20 05:06 Flagyl 500 Mg/100 Ml IV 100 mls/hr Q8HR CONCHITA Administration Protocol Lactated Ringer's 1,000 mls @ 125 mls/hr 02/03/20 05:00 02/04/20 05:04 Lactated Ringers IV 125 mls/hr DIRECT CONCHITA Administration Morphine Sulfate 2 mg 02/03/20 03:58 02/04/20 05:13 Morphine IV 2 mg Q3H PRN Administration Pain, Moderate (4-6) Ondansetron HCl 4 mg 02/03/20 03:58 02/03/20 19:42 Zofran IV 4 mg Q6H PRN Administration Nausea And Vomiting Prednisone 40 mg 02/04/20 14:00 Deltasone PO QDAY CONCHITA
--- NOTE | 2020-02-04 16:10 | Event Note ---
Date: 02/04/20 Ok to advance diet as tolerated. ok to discharge from our perspective when GI work-up completed. Please call with questions.
[2020-02-04] MEDS: predniSONE 20 MG TAB PO SCH (17:01)
[2020-02-05] MEDS: MORPHINE 2 MG/1 ML INJ IV PRN (05:32)
[2020-02-05] MEDS: metroNIDAZOLE/NS 500 MG/100 ML 500 MG/100 ML BAG IV SCH (07:25)
--- NOTE | 2020-02-05 08:55 | Gastroenterology Progress Note ---
Assessment and Plan 1. Suspected crohn's disease (ileo-colonic with suspected SBO on admission) - clinically doing well. CTE pending for today. if improved SBO findings and no new changes, can be discharged from gi stand point with prednisone taper and 7 days of cipro/flagyl. needs close f/u in GI clinic (colonoscopy and definitive diagnosis and management of likely IBD). counseled on tobacco cessation. Subjective Date of service: 02/05/20 Principal diagnosis: abd pain, n/v Interval history: no new gi complaints; tolerated clears yesterday. awaiting cte this morning Objective - Constitutional Vitals: Temp Pulse Resp BP Pulse Ox 98.1 F 58 L 18 132/73 98 02/05/20 07:44 02/05/20 07:44 02/05/20 07:44 02/05/20 07:44 02/05/20 07:44 General appearance: no acute distress - Respiratory Respiratory effort: normal Respiratory: bilateral: CTA - Cardiovascular Rhythm: regular Heart Sounds: Present: S1 & S2 - Gastrointestinal General gastrointestinal: Present: soft, non-tender, non-distended - Labs CBC & Chem 7: 02/02/20 18:18 02/02/20 18:18
--- NOTE | 2020-02-05 10:09 | Discharge Summary ---
Providers - Providers Date of Admission: 02/03/20 03:50 Attending physician: KURT LOPEZ MD 02/03/20 03:53 Consult to Physician [CONS] Routine Comment: JEFFERY Rubin spoke with Dr. Vu @ 0210 Consulting Provider: ALYSSA VU Physician Instructions: Reason For Exam: SMALL BOWELL OBSTRUCTION 02/03/20 03:54 Consult to Physician [CONS] Routine Comment: Consulting Provider: LISA NARAYAN Physician Instructions: Reason For Exam: CROH'S DISEASE Primary care physician: GRATED CHEESE MAKER Hospitalization Reason for admission: Abdominal pain secondary to Crohn's disease Condition: Stable Hospital course: 24 year old male recently treated for cronh's disease in this hospital presents with generalized abdominal pain associated with diarrhea and denies history of fever, chills, shortness of breath, chest pain, constipation, hematochezia or hematemesis. Surgery also evaluated the patient and per their documentation Patient reports that he has had problems with lower abdominal pain since March 2019. This is been recurrent issue for him. Due to his recent incarceration, he has been unable to get full evaluation and official diagnosis of the problem. He was recently seen in the emergency department about 1-1/2 weeks ago. He was unable to follow-up with a risk lead since that time to further evaluate this possible Crohn's disease. He reports that he is feeling a little bit better now. He is no longer nauseated. He had passed flatus last night. He removed his NG tube due to discomfort and difficulty with breathing. CT abdomen and pelvis: IMPRESSION: Persistent inflammation at the terminal ileum/proximal cecum most likely due to Crohn's disease. Findings are mildly worsened. New early small bowel obstruction. On reevaluation by GI: ct with ileocolonic inflammation with signs of sbo; findings suggestive of crohn's disease. he has clinically improved with abx, IV steroids and supportive care. okay to advance to soft diet today if okay with surgery. transition to oral meds (prednisone [address] enterography tomorrow and then likely can be discharged if no worsening/new changes on imaging. will need close outpt follow-up in gi clinic This has been discussed with the patient CT enterography has been ordered for a .m. 02/04: Patient clinically stable this morning. GI evaluated okay for discharge if CT shows improvement. Will discharge on tapering dose of prednisone 7-day course of Cipro and Flagyl. Patient advised need to follow-up closely with GI physician in the clinic. Tobacco cessation counseling also provided. 15 minutes of counseling. Assessment Small bowel obstruction now resolved Crohn's disease with acute exacerbation none appeared to resolve Persistent nausea with vomiting secondary to above Abdominal pain secondary to above Leukocytosis secondary to above Tobacco use disorder Disposition: DC-01 TO HOME OR SELFCARE Time spent for discharge: 35 MINS Core Measure Documentation - Palliative Care Palliative Care/ Comfort Measures: Not Applicable - Core Measures Any of the following diagnoses?: none Exam - Physical Exam Narrative exam: VITAL SIGNS: Reviewed. GENERAL: The patient appears normally developed, Vital signs as documented. HEAD: No signs of head trauma. EYES: Pupils are equal. Extraocular motions intact. EARS: Hearing grossly intact. MOUTH: Oropharynx is normal. NECK: No adenopathy, no JVD. CHEST: Chest with clear breath sounds bilaterally. No wheezes, rales, or rhonchi. CARDIAC: Regular rate and rhythm. S1 and S2, without murmurs, gallops, or rubs. VASCULAR: No Edema. Peripheral pulses normal and equal in all extremities. ABDOMEN: Soft, mildly tender but improved and non distended. No rebound or guarding, and no masses palpated. Bowel Sounds normal. MUSCULOSKELETAL: Good range of motion of all major joints. Extremities without clubbing, cyanosis or edema. NEUROLOGIC EXAM: Alert and oriented x 3 No focal sensory or strength deficits. Speech normal. Follows commands. PSYCHIATRIC: Mood normal. SKIN: Multiple tattoos detail exam as documented in skin assessment - Constitutional Vitals: Temp Pulse Resp BP Pulse Ox 98.1 F 58 L 18 132/73 98 02/05/20 07:44 02/05/20 07:44 02/05/20 07:44 02/05/20 07:44 02/05/20 07:44 Plan Activity: advance as tolerated, fall precautions Diet: low fat Special Instructions: record daily weights, record daily BP diary, smoking cessation Follow up with: JONI MORENO MD [Staff Physician] - 7 Days PRIMARY CARE, [Primary Care Provider] - 3-5 Days Forms: Work/School Release Form Prescriptions: Ciprofloxacin HCl [Ciprofloxacin TAB] 500 mg PO Q12HR #14 tab metroNIDAZOLE [Flagyl TAB] 500 mg PO Q8HR #20 tablet Prednisone [predniSONE 5 mg (6-Day Pack, 21 Tabs)] 5 mg PO .TAPER #1 tab.ds.pk methOCARBAMOL [Robaxin TAB] 750 mg PO Q8H PRN #14 tablet PRN Reason: Pain, Moderate (4-6) traMADoL [Ultram] 50 mg PO Q6HR PRN #20 tablet PRN Reason: Pain
[2020-02-05] MEDS: predniSONE 20 MG TAB PO SCH (10:46)
[2020-02-05 11:01] LABS: Basophils % (Auto) 0.1 % (0.0-1.8); Hematocrit 41.5 % (35.5-45.6); Hemoglobin 13.3 gm/dl (11.8-15.2); Lymphocytes # (Auto) 1.6 K/mm3 (1.2-5.4); Lymphocytes % (Auto) 8.6 % (13.4-35.0); Mean Corpuscular HGB Conc 32 % (32-34); Mean Corpuscular Volume 85 fl (84-94); Monocytes % (Auto) 5.1 % (0.0-7.3); Platelet Count 266 K/mm3 (140-440); Red Blood Count 4.89 M/mm3 (3.65-5.03); Red Cell Distribution Width 16.5 % (13.2-15.2)
--- NOTE | 2020-02-05 11:59 | Cat Scan Report ---
CT ABDOMEN AND PELVIS WITH CONTRAST INDICATION / CLINICAL INFORMATION: Crohn disease. TECHNIQUE: Axial CT images were obtained through the abdomen and pelvis after 100 cc Omnipaque 300 IV contrast a nd oral contrast per enterography protocol. All CT scans at this location are performed using CT dos e reduction for ALARA by means of automated exposure control. COMPARISON: CT abdomen and pelvis with contrast from 02/02/2020. FINDINGS: LOWER CHEST: There is a stable noncalcified nodule located medially along the right lower lobe measur ing 4.7 mm on image 10 of series 2. No additional significant abnormality. LIVER: No significant abnormality. GALLBLADDER: No significant abnormality. BILE DUCTS: No significant abnormality. PANCREAS: No significant abnormality. SPLEEN: No significant abnormality. ADRENALS: No significant abnormality. RIGHT KIDNEY / URETER: No significant abnormality. LEFT KIDNEY / URETER: No significant abnormality. STOMACH / SMALL BOWEL: No significant abnormality of the stomach. Previously seen inflammation at the terminal ileum/proximal cecum has improved. No other significant abnormality of the small bowel. COLON: Improve inflammation at the terminal ileum/proximal cecum. No additional significant abnormali ty. APPENDIX: No significant abnormality. PERITONEUM: No free fluid. No free air. No fluid collection. LYMPH NODES: No significant adenopathy. AORTA / ARTERIES: No significant abnormality. IVC / VEINS: No significant abnormality. URINARY BLADDER: No significant abnormality. REPRODUCTIVE ORGANS: No significant abnormality. ADDITIONAL FINDINGS: None. SKELETAL SYSTEM: No significant abnormality. IMPRESSION: 1. Interval improvement of the previously described inflammation of the terminal ileum/cecum without a new acute abnormality of the abdomen or pelvis. 2. Incidental 4.7 mm right lower lobe nodule. No follow-up imaging is indicated in a patient of this age. Please see below recommendation. INCIDENTAL PULMONARY NODULE RECOMMENDATION RECOMMENDATION: Solid Nodule size <6 mm -- Single or Multiple - Low Risk Patient: No routine follow-up - High Risk Patient: Optional CT at 12 months Note These recommendations do not apply to lung cancer screening, patients with immunosuppression, o r patients with known primary cancer. Note Newly detected indeterminate nodule in persons 35 years of age or older. Persons under the age of 35 should not receive follow-up unless there is a known primary cancer. Note A Perifissural Nodule is a fissure-attached/subpleural, homogeneous, solid nodule that had smoo th margins and an oval, lentiform, or triangular shape. They represent about 20% of nodules detected in lung cancer screening, are invariably benign, and do not require follow-up. Nodules 10 mm or large r (or those with suspicious features) will continue to be managed based on the size criteria. Low Risk Patient -- minimal or absent history of smoking and of other known risk factors. High Risk Patient -- history of smoking or of other known risk factors. Nodule dimensions are average of long and short axes, rounded to the nearest millimeter. Based on 2017 Fleischner Society Guidelines found in Radiology 2017 284:228-243. https://doi.[email or web address] https://www.ncbi.nlm.nih.gov/pmc/articles/WXL1753894/ Signer Name: Walt Vidal MD Signed: 02/05/2020 11:54 AM Workstation Name: [id number]
[2020-02-05 12:27] VITALS: BP 131/78
== END 2020-02-05 14:45 | disposition home or self-care (01) | DRG 386 ==
LOC: ED 17:47 → 3B-SURG 02-03 03:50
PROVIDERS: ADMIT Internal Medicine; ATTEND Internal Medicine
DX: K50.90 Crohn's disease, unspecified, without complications (principal); K56.609 Unspecified intestinal obstruction, unspecified as to partial versus complete obstruction; Z79.899 Other long term (current) drug therapy
CPT/HCPCS: 36415; 74177; 80053; 81001; 85007; 85025; G0378; J1956; J2270; J2405; J2930; J7030; J7120; J7512; Q0162; Q9967

== ENCOUNTER 2020-08-01 18:15 | Emergency (ER) | payer OTHER ==
[2020-08-01 19:26] VITALS: BP 122/73
[2020-08-01] MEDS ORDERED: ACETAMINOPHEN 500 MG TAB PO ONE (19:40)
[2020-08-01] MEDS ORDERED: IBUPROFEN 600 MG TAB PO ONE (19:40)
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
== END 2020-08-01 20:12 | disposition home or self-care (01) ==
LOC: ED 18:15
DX: S39.012A Strain of muscle, fascia and tendon of lower back, initial encounter (principal); M62.830 Muscle spasm of back; F12.10 Cannabis abuse, uncomplicated; Z79.899 Other long term (current) drug therapy; V49.49XA Driver injured in collision with other motor vehicles in traffic accident, initial encounter; Y93.89 Activity, other specified; Y92.488 Other paved roadways as the place of occurrence of the external cause; Y99.8 Other external cause status
CPT/HCPCS: 99282